=== PATIENT | female | born 1965 | race Two or more races ===

== ENCOUNTER 2017-06-01 19:15 | Emergency (ER) | payer OTHER ==
[~2017-06-01] VITALS: Ht 154.9 cm; Wt 59.0 kg
[2017-06-01 19:55] VITALS: BP 141/83
--- NOTE | 2017-06-01 20:06 | Emergency Room Report ---
History of Present Illness General Chief Complaint: Pain Source: Patient Present Illness HPI 52-year-old female presents to the emergency department complaining of 9/10 in severity Right shoulder pain , progressive onset x 2days. 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 denies weakness, denies neck or back pain. pain is exacerbated with raising arm. denies erythema, bruising, rashes, or swelling in the affected extremity. Denies numbness tingling or loss of sensation or gross motor movements of the extremities, incontinence of bowel or bladder. Denies CP, Palpitations, LOC, AMS, dizziness, Changes in Vision, Sensation, paresthesias, or a sudden severe headache. Allergies: Coded Allergies: No Known Allergies (Unverified , 06/01/17) Patient History Past Medical History: see triage record Past Surgical History: none Pertinent Family History: none Last Menstrual Period: N/A Now: No Reviewed Nursing Documentation: PMH: Agreed, PSxH: Agreed Nursing Documentation-PMH Past Medical History: No Stated History Review of Systems All Other Systems: negative except mentioned in HPI Physical Exam Vital Signs Date Time Temp Pulse Resp B/P (MAP) Pulse Ox O2 Delivery O2 Flow Rate FiO2 06/01/17 19:28 98.8 50 18 141/83 99 Room Air Sp02 EP Interpretation: reviewed, normal General Appearance: no apparent distress, alert, GCS 15, non-toxic Head: normocephalic, atraumatic Eyes: bilateral eye normal inspection, bilateral eye PERRL ENT: hearing grossly normal, normal voice Neck: full range of motion, no bony tend Respiratory: lungs clear, normal breath sounds, speaking full sentences Cardiovascular #1: regular rate, rhythm, normal capillary refill Musculoskeletal: back normal, gait/station normal, normal range of motion, tender - TTP to the caudal portion and lateral right shoulder, no obvious deformity, ttp is primarily in musculature/soft tissues, no prominent bony ttp, FROM with pain exacerbated with raising arm above the 90* , negative lift off test, no muscle weaknes, NVI Neurologic: alert, oriented x3, responsive, motor strength/tone normal, sensory intact, speech normal Skin: normal color, no rash, warm/dry, well hydrated Medical Decision Making PA Attestation Dr. Prescott is my supervising Physician whom patient management has been discussed with. Diagnostic Impression: Primary Impression: Overuse syndrome of shoulder Qualified Codes: S46.911A - Strain of unspecified muscle, fascia and tendon at shoulder and upper arm level, right arm, initial encounter ER Course 52-year-old female presents to the emergency department complaining of 9/10 in severity Right shoulder pain , progressive onset x 2days. 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 denies weakness, denies neck or back pain. pain is exacerbated with raising arm. denies erythema, bruising, rashes, or swelling in the affected extremity. Denies numbness tingling or loss of sensation or gross motor movements of the extremities, incontinence of bowel or bladder. Denies CP, Palpitations, LOC, AMS, dizziness, Changes in Vision, Sensation, paresthesias, or a sudden severe headache. Ddx considered but are not limited to Fracture, dislocation, contusion, Sprain/ Strain/Spasm, rotator cuff injury, over-use syndrome just to name a few. Vital signs: are WNL, pt. is afebrile H&PE are most consistent with musculoskeletal injury will perform imaging to r/ o fractures/dislocations. ORDERS: - X-ray not warranted at this time. no bony ttp. ED INTERVENTIONS: - Motrin PO ---Pt. declined. - - Right arm Sling applied by electroencephalograph technologist. Pt. remains neurovascularly intact. -d/w pt. conservative treatment, and to follow up with a primary care provider. pt given a list of primary care clinics for follow up. d/w pt. to return to the ED with worsening or new symptoms. DISCHARGE: At this time pt. is stable for d/c to home. Will provide printed patient care instructions, and any necessary prescriptions. Care plan and follow up instructions have been discussed with the patient prior to discharge. Last Vital Signs Date Time Temp Pulse Resp B/P (MAP) Pulse Ox O2 Delivery O2 Flow Rate FiO2 06/01/17 19:55 98.8 18 141/83 99 Room Air 06/01/17 19:28 50 Disposition: HOME, SELF-CARE Condition: Stable Scripts Ibuprofen* (MOTRIN*) 600 Mg Tablet 600 MG ORAL THREE TIMES A DAY, #30 TAB 0 Refills Prov: Julieta Rees 06/01/17 Departure Forms: Return to Work Return to Work Date: Jun 02, 2017 Work Restrictions: No Heavy Lifting, No Prolonged Standing Other Restrictions: limited use of right arm x 1 week. Return to Full Activity: Jun 09, 2017 Patient Instructions: Shoulder Pain, [id number] Additional Instructions: Take medications as directed. Follow up with a Primary Care Provider in 3-5 days, even if your symptoms have resolved. MRI may be required if symptoms persist despite conservative treatment. --Please review list of primary care clinics, if you do not already have a primary care provider Return sooner to ED if new symptoms occur, or current symptoms become worse. - Please note that this Emergency Department Report was dictated using [employer] associate technology software, occasionally this can lead to erroneous entry secondary to interpretation by the dictation equipment. Julieta Rees Jun 01, 2017 20:05
[2017-06-01] MEDS ORDERED: IBUPROFEN600 MG ORAL (20:07)
[2017-06-01 20:23] VITALS: BP 141/83
== END 2017-06-01 20:23 | disposition home or self-care (01) ==
LOC: EMR 20:16
DX: M70.811 Other soft tissue disorders related to use, overuse and pressure, right shoulder (principal); Y93.9 Activity, unspecified; M25.511 Pain in right shoulder
CPT/HCPCS: 99283